=== PATIENT | female | born 1960 | race American Indian/Alaskan Native ===

== ENCOUNTER 2021-03-17 21:52 | Observation (INO) | payer OTHER ==
[2021-03-17] MEDS ORDERED: ASPIRIN 325 MG TAB PO ONE (22:12)
--- NOTE | 2021-03-17 22:15 | Emergency Department Report ---
ED Chest Pain HPI - General Chief Complaint: Chest Pain Stated Complaint: CHEST PAIN Time Seen by Provider: 03/17/21 22:11 Source: EMS Mode of arrival: Stretcher Limitations: No Limitations - History of Present Illness Initial Comments: 60-year-old female, history of hypertension, diabetes, presents to ED with chest pain since yesterday. Patient states pain is left-sided, nonradiating, feels like throbbing in her chest. Patient states pain has been constant since yesterday. Onset at rest. Patient denies any aggravating or alleviating factors. She reports associated nausea, vomiting, shortness of breath. Patient also states she has been having some pain and swelling in her right knee, reports history of arthritis. Patient denies any fever or cough. She reports she is fully vaccinated against COVID-19. MD Complaint: chest pain -: days(s) (2) Onset: during rest Pain Location: left chest Pain Radiation: none Severity: moderate Severity scale (0 -10): 10 Quality: other (Throbbing) Consistency: constant Improves With: nothing Worsens With: nothing re: nausea, vomting, dyspnea. denies: diaphoresis Other Symptoms: leg swelling. denies: cough, fever Treatments Prior to Arrival: none - Related Data Allergies Allergy/AdvReac Type Severity Reaction Status Date / Time No Known Allergies Allergy Unverified 03/17/21 21:58 Heart Score - HEART Score History: Moderately suspicious EKG: Normal Age: 45-65 Risk factors: > 3 risk factors or hx of atherosclerotic disease Troponin: < normal limit HEART Score: 4 - EKG Read Time Time EKG Completed: 22:22 EKG Read Time: 22:25 ED Review of Systems ROS: Stated complaint: CHEST PAIN Other details as noted in HPI Comment: All other systems reviewed and negative Constitutional: denies: chills, fever Respiratory: shortness of breath. denies: cough Cardiovascular: chest pain Gastrointestinal: nausea, vomiting Musculoskeletal: arthralgia ED Past Medical Hx - Past Medical History Previous Medical History?: Yes Hx Hypertension: Yes Hx Diabetes: Yes Additional medical history: High Cholesterol - Surgical History Past Surgical History?: No - Social History Smoking Status: Unknown if ever smoked Substance Use Type: None ED Physical Exam - General Limitations: No Limitations General appearance: alert, in no apparent distress, obese - Head Head exam: Present: atraumatic, normocephalic - Eye Eye exam: Present: normal appearance, EOMI - ENT ENT exam: Present: mucous membranes moist - Respiratory Respiratory exam: Present: normal lung sounds bilaterally. Absent: respiratory distress - Cardiovascular Cardiovascular Exam: Present: normal rhythm, tachycardia - GI/Abdominal GI/Abdominal exam: Present: soft. Absent: distended, tenderness - Extremities Exam Extremities exam: Present: normal inspection, calf tenderness (Right-sided) - Neurological Exam Neurological exam: Present: alert, oriented X3 - Psychiatric Psychiatric exam: Present: normal affect, normal mood - Skin Skin exam: Present: warm, dry, intact, normal color ED Course Vital Signs 03/17/21 03/17/21 03/17/21 22:00 22:22 23:02 Temperature 98.5 F Pulse Rate 114 H 93 H Respiratory 18 26 H Rate Blood Pressure 148/89 [Left] O2 Sat by Pulse 98 98 Oximetry ED Medical Decision Making - Lab Data Result diagrams: 03/17/21 22:55 03/17/21 22:55 - EKG Data -: EKG Interpreted by Me EKG shows normal: sinus rhythm, axis, intervals, QRS complexes, ST-T waves Rate: normal - EKG Data Interpretation: no acute changes Critical care attestation.: If time is entered above; I have spent that time in minutes in the direct care of this critically ill patient, excluding procedure time. ED Disposition Clinical Impression: Chest pain Disposition: ADMITTED INPATIENT Is pt being admited?: Yes Condition: Stable Instructions: Nonspecific Chest Pain, Adult Time of Disposition: 01:07
[2021-03-17] MEDS ORDERED: ONDANSETRON 4 MG/2 ML INJ IV ONE (23:01)
[2021-03-17 23:11] LABS: Basophils % (Auto) 0.4 % (0.0-1.8); Hematocrit 42.1 % (30.3-42.9); Hemoglobin 13.9 gm/dl (10.1-14.3); Lymphocytes # (Auto) 1.1 K/mm3 (1.2-5.4); Lymphocytes % (Auto) 11.3 % (13.4-35.0); Mean Corpuscular HGB Conc 33 % (30-34); Mean Corpuscular Volume 91 fl (79-97); Monocytes # (Auto) 0.5 K/mm3 (0.0-0.8); Monocytes % (Auto) 4.9 % (0.0-7.3); Platelet Count 229 K/mm3 (140-440); Red Blood Count 4.62 M/mm3 (3.65-5.03); Red Cell Distribution Width 13.8 % (13.2-15.2)
[2021-03-17 23:28] LABS: INR 0.97 (0.87-1.13); Partial Thromboplastin Time 24.4 Sec. (24.2-36.6)
[2021-03-17 23:36] LABS: BUN/Creatinine Ratio 21; Blood Urea Nitrogen 17 mg/dL (7-17); Calcium 11.1 mg/dL (8.4-10.2); Hemolysis Index 9
--- NOTE | 2021-03-17 23:40 | XRay Report ---
CHEST 1 VIEW 03/17/2021 11:19 PM INDICATION / CLINICAL INFORMATION: CHEST PAIN. COMPARISON: None available. FINDINGS: SUPPORT DEVICES: None. HEART / MEDIASTINUM: No significant abnormality. LUNGS / PLEURA: Lung volumes are mildly diminished. No acute infiltrate. No pneumothorax. ADDITIONAL FINDINGS: No significant additional findings. IMPRESSION: Mildly diminished lung volumes. Signer Name: Lupillo Munoz MD Signed: 03/17/2021 11:36 PM Workstation Name: [id number]
[2021-03-17 23:41] LABS: Albumin 4.7 g/dL (3.9-5); Bilirubin,Direct 0.2 mg/dL (0-0.2)
[2021-03-17] MEDS ORDERED: MORPHINE 2 MG/1 ML INJ IV ONE (23:56)
[2021-03-18] MEDS ORDERED: METOCLOPRAMIDE 10 MG/2 ML INJ IV ONE (00:46)
--- NOTE | 2021-03-18 00:59 | Cat Scan Report ---
CTA CHEST WITH CONTRAST INDICATION / CLINICAL INFORMATION: chest pain. TECHNIQUE: Axial CT images were obtained through the chest after injection of Omnipaque 350, 100 cc I V contrast. 3 plane MIP and/or 3D reconstructions were produced. All CT scans at this location are pe rformed using CT dose reduction for ALARA by means of automated exposure control. COMPARISON: None available. FINDINGS: PULMONARY ARTERIES: No pulmonary emboli. THORACIC AORTA: No significant abnormality. HEART: No significant abnormality. CORONARY ARTERY CALCIFICATION: None. MEDIASTINUM / GRACIE: No significant abnormality. PLEURA: No pleural effusion. No pneumothorax. LUNGS: No acute air space or interstitial disease. ADDITIONAL FINDINGS: None. SKELETAL STRUCTURES: No significant osseous abnormality. IMPRESSION: 1. No CT evidence for pulmonary embolism. 2. Negative for pneumonia. Signer Name: Lupillo Munoz MD Signed: 03/18/2021 12:55 AM Workstation Name: [id number]
--- NOTE | 2021-03-18 01:06 | Cat Scan Report ---
CT ABDOMEN AND PELVIS WITH CONTRAST INDICATION / CLINICAL INFORMATION: vomiting, abd pain. TECHNIQUE: Axial CT images were obtained through the abdomen and pelvis after Omnipaque 350, 100 cc I V contrast. All CT scans at this location are performed using CT dose reduction for ALARA by means o f automated exposure control. COMPARISON: None available. FINDINGS: LIVER: No significant abnormality. GALLBLADDER: Probable gallstones layering dependently. BILE DUCTS: No significant abnormality. PANCREAS: No significant abnormality. SPLEEN: No significant abnormality. ADRENALS: No significant abnormality. RIGHT KIDNEY / URETER: 3 mm nonobstructing stone upper pole. Subcentimeter cyst upper pole. LEFT KIDNEY / URETER: 1 mm nonobstructing stone upper pole. STOMACH / SMALL BOWEL: No significant abnormality. COLON: Mild noninflamed cecal diverticulosis. APPENDIX: No significant abnormality. PERITONEUM: No free fluid. No free air. No fluid collection. LYMPH NODES: No significant adenopathy. VASCULAR STRUCTURES: No significant abnormality. URINARY BLADDER: No significant abnormality. REPRODUCTIVE ORGANS: Calcified fibroid uterus. ADDITIONAL FINDINGS: Soft tissue thickening at the musculature anterior to the proximal right femur m easuring 5.7 x 3.7 cm. Similar changes posterior to the acetabulum. SKELETAL SYSTEM: Bilateral hip prostheses. IMPRESSION: 1. No inflammatory process at the abdomen. 2. Small nonobstructing renal stones. 3. Probable small gallstones. 4. Soft tissue changes adjacent to the right hip are likely due to prosthesis placement or previous t rauma. Recommend clinical correlation. 5. Mild noninflamed cecal diverticulosis. Signer Name: Lupillo Munoz MD Signed: 03/18/2021 1:02 AM Workstation Name: [id number]
--- NOTE | 2021-03-18 01:23 | History and Physical Report ---
History of Present Illness Date of examination: 03/18/21 Date of admission: 03/18/21 Chief complaint: chest pain Abdominal pain History of present illness: This is a 60-year-old female seen in ED at bedside. Patient has a past medical history of hypertension, hyperlipidemia and diabetes. She presents to ED with chest pain, nausea and feeling of vomiting +1 episode of loose stool. Patient states pain is left-sided, nonradiating, feels like throbbing in her chest. Patient states pain has been constant since yesterday. Patient denies any aggravating or alleviating factors. Patient also states she has been having some pain and swelling in her right knee, reports history of arthritis. Patient denies any fever or cough. She reports she is fully vaccinated against COVID-19. Patient denies tobacco use, alcohol use, and illicit drug use. CT of the abdomen done and no acute Finding. CT of the abdomen and pelvis with contrast done no acute inflammatory process but positive for small nonobstructing renal stone. CTA of the chest with contrast done due to elevated D-dimer showed -2 pulmonary embolism and also negative for pneumonia. Past History Past Medical History: diabetes, hypertension, hyperlipidemia Past Surgical History: hernia repair, Other (Knee surgery) Social history: lives with family, full code. denies: smoking, alcohol abuse, prescription drug abuse, IV drug use Family history: diabetes, hypertension Medications and Allergies Allergies Allergy/AdvReac Type Severity Reaction Status Date / Time No Known Allergies Allergy Unverified 03/17/21 21:58 Review of Systems Constitutional: fatigue, weakness, malaise Ears, nose, mouth and throat: no epistaxis, no bleeding gums Cardiovascular: no chest pain Respiratory: no congestion, no wheezing Gastrointestinal: abdominal pain, nausea, vomiting, diarrhea, indigestion, no melena Rectal: no itching, no hemorrhoids Integumentary: no rash, no pruritis, no redness Neurological: no vertigo Hematologic/Lymphatic: no easy bruising, no easy bleeding, no lymphadenopathy, no lymphedema Allergic/Immunologic: no urticaria Exam - Constitutional Vitals: Temp Pulse Resp BP Pulse Ox 98.5 F 93 H 26 H 148/89 98 03/17/21 22:00 03/17/21 22:22 03/17/21 23:02 03/17/21 22:00 03/17/21 23:02 General appearance: Present: mild distress, well-nourished, obese - EENT Eyes: Present: PERRL ENT: hearing intact, clear oral mucosa - Neck Neck: Present: supple, normal ROM - Respiratory Respiratory effort: normal Respiratory: bilateral: CTA - Cardiovascular Heart Sounds: Present: S1 & S2. Absent: rub, click - Extremities Extremities: pulses symmetrical, No edema Peripheral Pulses: within normal limits - Abdominal General gastrointestinal: Present: soft, non-tender, non-distended, normal bowel sounds Female genitourinary: Present: normal - Integumentary Integumentary: Present: clear, warm, dry - Musculoskeletal Musculoskeletal: gait normal, strength equal bilaterally - Psychiatric Psychiatric: appropriate mood/affect, intact judgment & insight, cooperative - Neurologic Neurologic: CNII-XII intact, moves all extremities - Allied Health Allied health notes reviewed: nursing HEART Score - HEART Score EKG: Normal Age: 45-65 Risk factors: > 3 risk factors or hx of atherosclerotic disease Troponin: Troponin T < 0.010 ng/mL (0.00-0.029) 03/17/21 22:55 Troponin: < normal limit Results - Labs CBC & Chem 7: 03/18/21 03:03 03/18/21 03:03 Labs: Abnormal lab results 03/17/21 03/17/21 03/17/21 Range/Units 22:55 22:55 22:55 Lymph % (Auto) 11.3 L (13.4-35.0) % Lymph # (Auto) 1.1 L (1.2-5.4) K/mm3 Seg Neutrophils % 83.4 H (40.0-70.0) % Seg Neutrophils # 8.2 H (1.8-7.7) K/mm3 D-Dimer 805.65 H (0-234) ng/mlDDU Potassium 3.4 L (3.6-5.0) mmol/L Chloride 96.7 L (98-107) mmol/L Glucose 218 H (65-100) mg/dL Calcium 11.1 H (8.4-10.2) mg/dL Total Protein (6.3-8.2) g/dL 03/17/21 Range/Units 22:55 Lymph % (Auto) (13.4-35.0) % Lymph # (Auto) (1.2-5.4) K/mm3 Seg Neutrophils % (40.0-70.0) % Seg Neutrophils # (1.8-7.7) K/mm3 D-Dimer (0-234) ng/mlDDU Potassium (3.6-5.0) mmol/L Chloride (98-107) mmol/L Glucose (65-100) mg/dL Calcium (8.4-10.2) mg/dL Total Protein 8.4 H (6.3-8.2) g/dL Assessment and Plan - Patient Problems (1) Chest pain Current Visit: Yes Status: Acute Plan to address problem: Questionable causetroponin is negative Elevated D-dimerCT of the chest no PE noted Echocardiogram ordered and improvement spec consulted Continue aspirin, statin, and nitro sublingual as needed (2) Nausea & vomiting Current Visit: Yes Status: Acute Plan to address problem: CT of the abdomen and pelvics showed no acute finding Continue antiemetic and PPI Gentle IV hydration (3) Essential (primary) hypertension Current Visit: Yes Status: Acute Plan to address problem: Monitor blood pressure Resume home antihypertensive As needed hydralazine (4) Diabetes Current Visit: Yes Status: Acute Plan to address problem: Monitor blood sugar with sliding scale protocol Check hemoglobin A1c (5) Hyperlipidemia Current Visit: Yes Status: Acute Plan to address problem: Resume home statin (6) Elevated d-dimer Current Visit: Yes Status: Acute Plan to address problem: CT of the chest donenegative for pulmonary embolus (7) Hypokalemia Current Visit: Yes Status: Acute Plan to address problem: Replace potassium Monitor electrolyte level and replace as needed Check magnesium (8) Hyponatremia Current Visit: Yes Status: Acute Plan to address problem: Likely secondary to dehydration/vomiting Gentle IV hydration with normal saline Monitor sodium level (9) Obesity Current Visit: Yes Status: Acute Plan to address problem: Likely secondary to excess caloric intake Counseled on healthy dietadvised to eat more fruits and vegetables Educated on the importance of weight management (10) DVT prophylaxis Current Visit: Yes Status: Acute Plan to address problem: Subcutaneous level
[2021-03-18] MEDS ORDERED: ACETAMINOPHEN 325 MG TAB PO PRN ×2 (01:25→01:29)
[2021-03-18] MEDS ORDERED: SENNOSIDES 8.6 MG TAB PO PRN (01:25)
[2021-03-18] MEDS ORDERED: oxyCODONE /ACETAMINOPHEN 5-325MG TAB PO PRN (01:25)
[2021-03-18] MEDS ORDERED: NALOXONE 0.4 MG/1 ML INJ IV PRN (01:25)
[2021-03-18] MEDS ORDERED: ONDANSETRON 4 MG/2 ML INJ IV PRN (01:25)
[2021-03-18] MEDS ORDERED: MORPHINE 4 MG/1 ML INJ IV PRN (01:25)
[2021-03-18] MEDS ORDERED: MORPHINE 2 MG/1 ML INJ IV PRN (01:25)
[2021-03-18] MEDS ORDERED: MAGNESIUM HYDROXIDE (MOM) ORAL LIQD UDC PO PRN (01:25)
[2021-03-18] MEDS ORDERED: NITROGLYCERIN 0.4 MG TAB SUBL SL PRN (01:29)
[2021-03-18] MEDS ORDERED: traMADol 50 MG TAB PO PRN (01:29)
[2021-03-18 03:12] LABS: Basophils % (Auto) 0.3 % (0.0-1.8); Hematocrit 40.5 % (30.3-42.9); Hemoglobin 13.7 gm/dl (10.1-14.3); Lymphocytes # (Auto) 0.8 K/mm3 (1.2-5.4); Lymphocytes % (Auto) 7.6 % (13.4-35.0); Mean Corpuscular HGB Conc 34 % (30-34); Mean Corpuscular Volume 91 fl (79-97); Monocytes # (Auto) 0.4 K/mm3 (0.0-0.8); Monocytes % (Auto) 3.8 % (0.0-7.3); Platelet Count 224 K/mm3 (140-440); Red Blood Count 4.44 M/mm3 (3.65-5.03); Red Cell Distribution Width 13.7 % (13.2-15.2)
[2021-03-18 03:34] LABS: Blood Urea Nitrogen 16 mg/dL (7-17); Calcium 10.6 mg/dL (8.4-10.2); Hemolysis Index 13
[2021-03-18 03:35] LABS: BUN/Creatinine Ratio 23
[2021-03-18] MEDS ORDERED: hydrALAZINE 20 MG/1 ML INJ IV PRN (07:00)
[2021-03-18] MEDS ORDERED: SODIUM CHLORIDE 0.9% 1000 ML 1,000 ML IV SCH (07:00)
[2021-03-18] MEDS ORDERED: INSULIN LISPRO 100 UNIT/ML SUB-Q SCH (07:30)
[2021-03-18] MEDS ORDERED: POTASSIUM CHLORIDE ER 20 MEQ TAB PO ONE (07:37)
[2021-03-18] MEDS ORDERED: POTASSIUM CHLORIDE 10 MEQ 10 MEQ/100 ML BAG IV ONE (08:00)
[2021-03-18] MEDS ORDERED: POTASSIUM CHLORIDE ER 20 MEQ TAB PO SCH (08:00)
[2021-03-18 09:28] VITALS: BP 119/89
[2021-03-18] MEDS ORDERED: ASPIRIN EC 81 MG TAB PO SCH (10:00)
[2021-03-18] MEDS ORDERED: FAMOTIDINE 20 MG/2 ML INJ IV SCH (10:00)
[2021-03-18] MEDS ORDERED: ENOXAPARIN 40 MG/0.4 ML INJ SUB-Q SCH (10:00)
--- NOTE | 2021-03-18 11:06 | Discharge Summary ---
Providers - Providers Date of Admission: 03/18/21 01:25 Date of discharge: 03/18/21 Attending physician: CHERYL CANALES MD 03/18/21 Consult to Cardiac Rehabilitation [CONS] Routine Reason For Exam: Phase I 03/18/21 01:29 Consult to Cardiology [CONS] Routine Consulting Provider: DAVID RIVAS Reason For Exam: chest pain Hospitalization Condition: Stable Exam - Constitutional Vitals: Temp Pulse Resp BP Pulse Ox 99.7 F H 113 H 18 119/89 100 03/18/21 08:03 03/18/21 08:03 03/18/21 08:03 03/18/21 08:03 03/18/21 08:03 Plan Care Plan Goals: Follow up with Dr. Cabrera in clinic in the next few weeks. Please call to schedule an appointment. Restart your home blood pressure medications. If you experience chest pain along with nausea/vomiting, palpitations, numbness and tingling or movement of the pain to the jaw and/or arm, please seek medical attention. Assessment: Patient reported with chest pain since . Troponin was negative x2. Potassium was found to be 3.1. She received 70MeQ of KCl. Her chest pain resolv ed. Echocardiogram was within normal limits. Cardiology evaluated the patient and she was discharged with instructions to follow up in clinic in a few weeks. Follow up with: AMBER FOX [Other] - 7 Days Prescriptions: Nitroglycerin [Nitrostat] 0.4 mg SL Q5M PRN #30 tablet PRN Reason: Chest Pain
--- NOTE | 2021-03-18 11:20 | Consultation ---
History of Present Illness Consult date: 03/18/21 Requesting physician: CHERYL CANALES Consult reason: chest pain History of present illness: 60-year-old female with obesity hypertension diabetes cholesterol presents with 2 days of lower abdominal and chest pain. And some shortness of breath. Took some Tums without relief. Hooks better after large bowel movement. Had persistent chest pain came to the emergency room. CT scan of the chest was negative for PE. Is been Covid vaccinated. Negative troponin. Echo today normally function without significant regurgitation. Normal EKG. Patient is chest pain-free would like to go home. Past History Past Medical History: diabetes, hypertension, hyperlipidemia Past Surgical History: hernia repair, Other (Knee surgery) Social history: lives with family, full code. denies: smoking, alcohol abuse, prescription drug abuse, IV drug use Family history: diabetes, hypertension Medications and Allergies Allergies Allergy/AdvReac Type Severity Reaction Status Date / Time No Known Allergies Allergy Unverified 03/17/21 21:58 Home Medications Medication Instructions Recorded Confirmed Last Taken Type Aspirin EC [Halfprin EC] 81 mg PO QDAY tablet 03/18/21 Unknown Rx AtorvaSTATin [Lipitor] 40 mg PO QHS tablet 03/18/21 Unknown Rx Nitroglycerin [Nitrostat] 0.4 mg SL Q5M PRN #30 tablet 03/18/21 Unknown Rx Active Meds: Active Medications Acetaminophen (Acetaminophen 325 Mg Tab) 650 mg PO Q4H PRN PRN Reason: Pain MILD(1-3)/Fever >100.5/VARGAS Aspirin (Aspirin Ec 81 Mg Tab) 81 mg PO QDAY [facility] Last Admin: 03/18/21 08:40 Dose: 81 mg Documented by: Atorvastatin Calcium (Atorvastatin 40 Mg Tab) 40 mg PO QHS [facility] Enoxaparin Sodium (Enoxaparin 40 Mg/0.4 Ml Inj) 40 mg SUB-Q QDAY [facility] Last Admin: 03/18/21 08:39 Dose: 40 mg Documented by: Famotidine (Famotidine 20 Mg/2 Ml Inj) 20 mg IV BID [facility] Last Admin: 03/18/21 08:39 Dose: 20 mg Documented by: Hydralazine HCl (Hydralazine 20 Mg/1 Ml Inj) 5 mg IV Q4H PRN PRN Reason: Hypertension Sodium Chloride (Nacl 0.9% 1000 Ml) 1,000 mls @ 42 mls/hr IV DIRECT BALJTI Last Admin: 03/18/21 08:41 Dose: 42 mls/hr Documented by: Insulin Human Lispro (Insulin Lispro 100 Unit/Ml) 0 unit SUB-Q ACHS BALJIT; Protocol Magnesium Hydroxide (Magnesium Hydroxide (Mom) Oral Liqd Udc) 30 ml PO Q4H PRN PRN Reason: Constipation Morphine Sulfate (Morphine 2 Mg/1 Ml Inj) 2 mg IV Q4H PRN PRN Reason: Pain, Moderate (4-6) Morphine Sulfate (Morphine 4 Mg/1 Ml Inj) 4 mg IV Q4H PRN PRN Reason: Pain , Severe (7-10) Last Admin: 03/18/21 08:39 Dose: 4 mg Documented by: Naloxone HCl (Naloxone 0.4 Mg/1 Ml Inj) 0.1 mg IV Q2MIN PRN PRN Reason: Res Rate </= 8 or 02 SAT < 92% Nitroglycerin (Nitroglycerin 0.4 Mg Tab Subl) 0.4 mg SL Q5M PRN PRN Reason: Chest Pain Ondansetron HCl (Ondansetron 4 Mg/2 Ml Inj) 4 mg IV Q8H PRN PRN Reason: Nausea And Vomiting Oxycodone/Acetaminophen (Oxycodone /Acetaminophen 5-325mg Tab) 1 tab PO Q6H PRN PRN Reason: Pain, Moderate (4-6) Potassium Chloride (Potassium Chloride Er 20 Meq Tab) 20 meq PO ONCE@0800 [facility] Stop: 03/18/21 12:00 Senna (Sennosides 8.6 Mg Tab) 8.6 mg PO Q12HR PRN PRN Reason: Constipation Sodium Chloride (Sodium Chloride 0.9% 10 Ml Flush Syringe) 10 ml IV BID [facility] Sodium Chloride (Sodium Chloride 0.9% 10 Ml Flush Syringe) 10 ml IV PRN PRN PRN Reason: LINE FLUSH Tramadol HCl (Tramadol 50 Mg Tab) 50 mg PO Q6H PRN PRN Reason: Pain, Moderate (4-6) Review of Systems All systems: negative (As per the HPI) Physical Examination Vital Signs Temp Pulse Resp BP Pulse Ox 98.5 F 114 H 18 148/89 98 03/17/21 22:00 03/17/21 22:00 03/17/21 22:00 03/17/21 22:00 03/17/21 22:00 General appearance: no acute distress, well-nourished HEENT: Positive: PERRL, Mucus Membranes Moist Neck: Positive: neck supple, trachea midline Cardiac: Positive: Reg Rate and Rhythm, S1/S2. Negative: Audible Murmur Lungs: Positive: clear to auscultation, Normal Breath Sounds Neuro: Positive: Grossly Intact Abdomen: Positive: Soft, Active Bowel Sounds. Negative: Tender, Distended Female genitourinary: deferred Skin: Positive: Clear Incision: Cardiac Cath Site Musculoskeletal: No Pain, Normal Range of Motion Extremities: Present: normal. Absent: edema Results 03/18/21 03:03 03/18/21 03:03 Cardiac Enzymes 03/17/21 Range/Units 22:55 AST 23 (5-40) units/L Coagulation 03/17/21 Range/Units 22:55 PT 14.0 (12.2-14.9) Sec. INR 0.97 (0.87-1.13) APTT 24.4 (24.2-36.6) Sec. CBC 03/17/21 03/18/21 Range/Units 22:55 03:03 WBC 9.8 10.2 (4.5-11.0) K/mm3 RBC 4.62 4.44 (3.65-5.03) M/mm3 Hgb 13.9 13.7 (10.1-14.3) gm/dl Hct 42.1 40.5 (30.3-42.9) % Plt Count 229 224 (140-440) K/mm3 Lymph # (Auto) 1.1 L 0.8 L (1.2-5.4) K/mm3 [place] # (Auto) 0.5 0.4 (0.0-0.8) K/mm3 Eos # (Auto) 0.0 0.0 (0.0-0.4) K/mm3 Baso # (Auto) 0.0 0.0 (0.0-0.1) K/mm3 Comprehensive Metabolic Panel 03/17/21 03/17/21 03/18/21 Range/Units 22:55 22:55 03:03 Sodium 138 135 L (137-145) mmol/L Potassium 3.4 L 3.1 L (3.6-5.0) mmol/L Chloride 96.7 L 95.1 L (98-107) mmol/L Carbon Dioxide 24 23 (22-30) mmol/L BUN 17 16 (7-17) mg/dL Creatinine 0.8 0.7 (0.6-1.2) mg/dL Glucose 218 H 206 H (65-100) mg/dL Calcium 11.1 H 10.6 H (8.4-10.2) mg/dL Direct Bilirubin 0.2 (0-0.2) mg/dL Indirect Bilirubin 0.8 mg/dL AST 23 (5-40) units/L ALT 18 (7-56) units/L Alkaline Phosphatase 109 (35-129) units/L Total Protein 8.4 H (6.3-8.2) g/dL Albumin 4.7 (3.9-5) g/dL - Imaging and Cardiology Echo: report reviewed (Normal LV function without significant regurgitation) EKG interpretations - Telemetry EKG Rhythm: Sinus Rhythm (Sinus rhythm LVH no ST-T abnormality) Assessment and Plan 60-year-old female with hypertension diabetes cholesterol obesity heart score of 2 with normal EKG with mild LVH. Has atypical chest pain. Negative troponin. Negative CT of the chest. Normal LV function echocardiogram. Patient will be treated for GI. Will follow up in the office for further evaluation of her chest pain. Advised patient to monitor symptomology if recurrent to return back to the hospital - Patient Problems (1) Chest pain Current Visit: Yes Status: Acute Qualifiers: Chest pain type: unspecified Qualified Code(s): R07.9 - Chest pain, unspecified (2) Diabetes Current Visit: Yes Status: Chronic Qualifiers: Diabetes mellitus type: type 2 (3) Elevated d-dimer Current Visit: Yes Status: Chronic (4) Hyperlipidemia Current Visit: Yes Status: Chronic Qualifiers: Hyperlipidemia type: mixed hyperlipidemia Qualified Code(s): E78.2 - Mixed hyperlipidemia
[2021-03-19] MEDS ORDERED: ASPIRIN 81 MG TAB CHEW PO SCH (10:00)
--- NOTE | 2021-03-20 11:23 | Electrocardiograph Report ---
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
--- NOTE | 2021-03-20 11:33 | Electrocardiograph Report ---
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
== END 2021-03-18 14:20 | disposition home or self-care (01) ==
LOC: ED 21:52 → 4A 03-18 01:25
PROVIDERS: ADMIT Internal Medicine Geriatric Medicine; ATTEND Student in an Organized Health Care Education/Training Program
DX: R07.89 Other chest pain (principal); I10 Essential (primary) hypertension; R11.2 Nausea with vomiting, unspecified; E11.9 Type 2 diabetes mellitus without complications; E78.2 Mixed hyperlipidemia; R77.8 Other specified abnormalities of plasma proteins; E87.6 Hypokalemia; E87.1 Hypo-osmolality and hyponatremia; E78.00 Pure hypercholesterolemia, unspecified; E66.9 Obesity, unspecified; R10.9 Unspecified abdominal pain; Z79.899 Other long term (current) drug therapy; Z98.890 Other specified postprocedural states; Z79.82 Long term (current) use of aspirin; Z79.4 Long term (current) use of insulin; Z68.42 Body mass index [BMI] 45.0-49.9, adult
CPT/HCPCS: 36415; 71045; 71275; 74177; 80048; 80076; 82962; 83036; 83690; 83735; 84100; 84132; 84484; 85025; 85379; 85610; 85730; 93005; 93306; 96372; 96374; 96375; 96376; 99285; G0378; J1650; J2270; J2405; J2765; J3490; J7030; Q9967; Q0162